=== PATIENT | male | born 1960 | race American Indian/Alaskan Native ===

== ENCOUNTER 2017-04-10 06:33 | Day surgery (SDC) | payer BC, OTHER ==
[2017-04-10] MEDS ORDERED: DIPRIVAN 10 MG/ML IV ONE ×3 (08:07)
[2017-04-10] MEDS ORDERED: XYLOCAINE MPF 2% ONE (08:08)
--- NOTE | 2017-04-10 08:13 | Anesthesia Consultation ---
Anesthesia Consult and Med Hx Date of service: 04/10/17 - Airway Anesthetic Teeth Evaluation: Good ROM Head & Neck: Inadequate Mental/Hyoid Distance: Inadequate Mallampati Class: Class III Intubation Access Assessment: Possibly Difficult - Pulmonary Exam CTA: Yes - Cardiac Exam Cardiac Exam: RRR - Pre-Operative Health Status ASA Pre-Surgery Classification: ASA3 Proposed Anesthetic Plan: General - Pulmonary Hx Smoking: No Hx Sleep Apnea: Yes - Cardiovascular System Hx Hypertension: Yes Hx Cardia Arrhythmia: Yes (A fibrillation, Pt is anticoagulated.) Hx Valvular Heart Disease: Yes - Central Nervous System Hx Seizures: No CVA: No Hx Psychiatric Problems: No - Gastrointestinal Hx Gastroesophageal Reflux Disease: No - Endocrine Hx Renal Disease: No Hx Liver Disease: No Hx Insulin Dependent Diabetes: No Hx Thyroid Disease: No - Hematic Hx Anemia: Yes - Other Systems Hx Cancer: No
--- NOTE | 2017-04-10 08:14 | Anesthesia Day of Surgery ---
Anesthesia Day of Surgery - Day of Surgery Patient Examined: Yes Patient H&P Reviewed: Yes Patient is NPO: Yes
--- NOTE | 2017-04-10 08:45 | Short Stay Summary ---
Short Stay Documentation - Allergies and Medications Current Medications: Allergies No Known Allergies Allergy (Verified 09/02/14 08:33) Home Medications Medication Instructions Recorded Confirmed Last Taken Type Apixaban [Eliquis] 5 mg PO BID 09/02/14 04/10/17 02/19/15 History Furosemide 40 mg PO QWEEK 09/02/14 04/10/17 02/15/15 History Atorvastatin [Lipitor] 10 mg PO DAILY 10/05/14 04/10/17 02/20/15 05:00 History Aspirin EC [Aspirin Enteric Coated 81 mg PO QDAY 02/20/15 04/10/17 02/20/15 05: 00 History TAB] Digoxin [Lanoxin] 0.125 mg PO DAILY 02/20/15 04/10/17 02/20/15 05:00 History Diltiazem HCl [Diltiazem ER] 300 mg PO DAILY 02/20/15 04/10/17 04/09/17 History Losartan [Cozaar] 25 mg PO QDAY 02/20/15 04/10/17 04/10/17 History Spironolactone [Aldactone] 25 mg PO DAILY 02/20/15 04/10/17 02/20/15 05:00 History Tamsulosin HCl 0.4 mg PO DAILY 02/20/15 04/10/17 02/19/15 History Warfarin 100 mg PO DAILY 04/10/17 04/10/17 04/05/17 History Active Medications Sodium Chloride (Nacl 0.9% 1000 Ml) 1,000 mls @ 50 mls/hr IV DIRECT PINKY Last Admin: 04/10/17 08:09 Dose: 50 mls/hr - Brief post op/procedure progress note Date of procedure: 04/10/17 Pre-op diagnosis: Colon screening 2. H/O colon polyps Post-op diagnosis: same (1. Internal hemorrhoids 2. Poor prep) Procedure: Colonoscopy Anesthesia: MAC Findings: as above Surgeon: CHAPIS KENNEY Estimated blood loss: none Pathology: none Condition: stable - Disposition Condition at discharge: Stable Disposition: DISCHARGED TO HOME OR SELFCARE Short Stay Discharge Plan Follow up with: ISA MICHELE MD [Primary Care Provider] - 7 Days
--- NOTE | 2017-04-10 08:46 | Post Anesthesia Evaluation ---
- Post Anesthesia Evaluation Patient Participated: Yes Airway Patent: Yes Stable Respiratory Function: Yes Nausea/Vomiting: No Temp > 96.8F: Yes Pain Manageable: Yes Adequeate Hydration: Yes Anesthesia Complications: No Block Receding Appropriately: Not Applicable Patient on Ventilator: No
[2017-04-10] MEDS ORDERED: NACL 0.9% 1000 ML 1,000 ML IV SCH (09:00)
[2017-04-10 09:08] VITALS: BP 127/82
== END 2017-04-10 06:34 | disposition home or self-care (01) ==
LOC: GIO 06:33
PROVIDERS: ATTEND Internal Medicine Gastroenterology
DX: Z12.11 Encounter for screening for malignant neoplasm of colon (principal); K64.0 First degree hemorrhoids; I11.0 Hypertensive heart disease with heart failure; I48.91 Unspecified atrial fibrillation; I50.9 Heart failure, unspecified; D64.9 Anemia, unspecified; Z86.010 Personal history of colon polyps; Z79.01 Long term (current) use of anticoagulants; Z83.3 Family history of diabetes mellitus; Z83.79 Family history of other diseases of the digestive system
CPT/HCPCS: G0105; J2704; J7030